=== PATIENT | male | born 1990 | race Caucasian/White ===

== ENCOUNTER 2016-12-28 19:24 | Emergency (ER) | payer SELFPAY ==
[2016-12-28 19:24] VITALS: BMI 27.3
[2016-12-28 19:30] VITALS: BP 97/57; PULSE 88; RESP 20; TEMP 98.3; O2SAT 98
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
== END 2016-12-28 20:20 | disposition left against medical advice (07) ==
LOC: C.ER 19:24
DX: F10.129 Alcohol abuse with intoxication, unspecified (principal); Y90.9 Presence of alcohol in blood, level not specified

== ENCOUNTER 2016-12-30 09:26 | Emergency (ER) | payer SELFPAY ==
[2016-12-30 09:26] VITALS: BMI 27.3
[2016-12-30 09:39] VITALS: RESP 16; TEMP 98; O2SAT 98
--- NOTE | 2016-12-30 10:31 | C.PDOC ---
History Of Present Illness <Kailey Yuan - Last Filed: 12/30/16 15:18> <Elza Cuba - Last Filed: 12/30/16 15:51> 26 y/o male with PMHx of Colitis presents to ED with complaints of dizziness, weakness and sore throat. Patient was seen at ED "few days ago" for ETOH abuse. Patient denies fever, chills, nausea, vomiting, cough, chest pain or any other complaints at this time. (Kailey Yuan) History Per: Patient History/Exam Limitations: no limitations Onset/Duration Of Symptoms: Days Current Symptoms Are (Timing): Still Present Fall Associated With With Symptoms: No Severity: Mild Recent travel outside of the [place]: No <Kailey Yuan - Last Filed: 12/30/16 15:18> <Elza Cuba - Last Filed: 12/30/16 15:51> Time Seen by Provider: 12/30/16 09:46 Chief Complaint (Nursing): Dizziness/Lightheaded Past Medical History Reviewed: Historical Data, Nursing Documentation, Vital Signs - Medical History PMH: No Chronic Diseases Surgical History: No Surg Hx Family History: States: No Known Family Hx - Social History Hx Tobacco Use: Yes Hx Alcohol Use: Yes Hx Substance Use: No - Immunization History Hx Tetanus Toxoid Vaccination: No Hx Influenza Vaccination: No Hx Pneumococcal Vaccination: No <Kailey Yuan - Last Filed: 12/30/16 15:18> Vital Signs: Last Vital Signs Temp 98 F 12/30/16 09:36 Pulse 85 12/30/16 12:17 Resp 16 12/30/16 12:17 BP 132/85 12/30/16 12:17 Pulse Ox 98 12/30/16 15:19 Review Of Systems Constitutional: Negative for: Fever, Chills ENT: Positive for: Throat Swelling Gastrointestinal: Negative for: Nausea, Vomiting, Abdominal Pain Skin: Negative for: Rash Neurological: Positive for: Weakness, Dizziness. Negative for: Numbness <Kaliey Yuan - Last Filed: 12/30/16 15:18> Physical Exam - Physical Exam Appears: Non-toxic, No Acute Distress Skin: Normal Color, Warm, Dry, No Rash Head: Atraumatic, Normacephalic Eye(s): bilateral: Normal Inspection Oral Mucosa: Moist Throat: Normal, No Erythema, No Exudate Neck: Normal ROM, Supple Chest: Symmetrical Cardiovascular: Rhythm Regular Respiratory: Normal Breath Sounds, No Rales, No Rhonchi, No Wheezing Gastrointestinal/Abdominal: Normal Exam Extremity: Normal ROM, No Pedal Edema Neurological/Psych: Oriented x3 Gait: Steady <Kailey Yuan - Last Filed: 12/30/16 15:18> ED Course And Treatment - Laboratory Results Result Diagrams: 12/30/16 10:44 12/30/16 10:44 Lab Interpretation: Normal O2 Sat by Pulse Oximetry: 98 (RA) Pulse Ox Interpretation: Normal Progress Note: Rapid strep neg. On re-evaluation lungs clear, neuro intact, ambulating with steady gait Reassessment Condition: Unchanged <Kailey Yuan - Last Filed: 12/30/16 15:18> - Laboratory Results Result Diagrams: 12/30/16 10:44 12/30/16 10:44 <Elza Cuba - Last Filed: 12/30/16 15:51> Medical Decision Making <Kailey Yuan - Last Filed: 12/30/16 15:18> <Elza Cuba - Last Filed: 12/30/16 15:51> Medical Decision Making: Plan: Strep throat, labs (Kailey Yuan) Disposition Counseled Patient/Family Regarding: Studies Performed, Diagnosis, Need For Followup - Disposition Disposition Time: 11:30 - POA Present On Arrival: None <Kailey Yuan - Last Filed: 12/30/16 15:18> <Elza Cuba - Last Filed: 12/30/16 15:51> - Disposition Referrals: [facility] [Outside] [facility] at [facility] [Outside] Disposition: HOME/ ROUTINE Condition: STABLE Instructions: Pharyngitis (ED), Weakness (ED) Forms: [facility] (South African) - Clinical Impression Clinical Impression: Weakness, Pharyngitis - 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 - Scribe Statement The provider has reviewed the documentation as recorded by the Scribe <Kailey Yuan - Last Filed: 12/30/16 15:18> <Elza Cuba - Last Filed: 12/30/16 15:51> - Scribe Statement Fatou Tian All medical record entries made by the Scribe were at my direction and personally dictated by me. I have reviewed the chart and agree that the record accurately reflects my personal performance of the history, physical exam, medical decision making, and the department course for this patient. I have also personally directed, reviewed, and agree with the discharge instructions and disposition. (Kailey Yuan
[2016-12-30 10:50] LABS: BASO % 0.6 % (0.0-2.0); EOS # 0.1 K/uL (0.0-0.7); EOS % 1.4 % (0.0-4.0); HEMATOCRIT 44.8 % (35.0-51.0); LYMPH # 2.6 K/uL (1.0-4.3); LYMPH % 33.7 % (20.0-40.0); MEAN CELL VOLUME 86.3 fL (80.0-94.0); MEAN CORPUSCULAR HEMOGLOBIN 29.4 pg (27.0-31.0); MEAN CORPUSCULAR HGB CONC 34.1 g/dL (33.0-37.0); MEAN PLATELET VOLUME 7.9 fL (7.2-11.7); MONO # 0.6 K/uL (0.0-0.8); MONO % 8.1 % (0.0-10.0); NRBC % 0.1 % (0.0-2.0); RED CELL DISTRIBUTION WIDTH 13.7 % (11.5-14.5); WHITE BLOOD COUNT 7.6 K/uL (4.8-10.8)
[2016-12-30 10:53] LABS: RBC URINE < 1 /hpf (0-3); URINE BILIRUBIN NEGATIVE (NEGATIVE); URINE BLOOD NEGATIVE (NEGATIVE); URINE COLOR Yellow (YELLOW); URINE GLUCOSE (UA) NORMAL (Normal); URINE KETONE NEGATIVE (NEGATIVE); URINE LEUKOCYTE ESTERASE NEG Leu/uL (Negative); URINE PROTEIN NEGATIVE (NEGATIVE); URINE UROBILINOGEN NORMAL mg/dL (0.2-1.0); WBC URINE < 1 /hpf (0-5)
[2016-12-30 11:11] LABS: CHLORIDE 97 mmol/L (98-107)
[2016-12-30 11:12] LABS: POTASSIUM 3.8 mmol/L (3.6-5.2); SODIUM 138 mmol/L (132-148)
[2016-12-30 11:14] LABS: GFR AFRICAN-AMERICAN > 60
[2016-12-30 11:15] LABS: BLOOD UREA NITROGEN 13 mg/dL (9-20); CALCIUM 9.7 mg/dl (8.6-10.4); CARBON DIOXIDE 28 mmol/L (22-30); GLUCOSE,RANDOM 86 mg/dL (75-110)
[2016-12-30 12:18] VITALS: BP 132/85; PULSE 85
== END 2016-12-30 12:17 | disposition home or self-care (01) ==
LOC: C.ER 09:26
DX: R53.1 Weakness (principal); J02.9 Acute pharyngitis, unspecified